=== PATIENT | female | born 1995 | race Caucasian/White ===

== ENCOUNTER → 2016-10-25 | Outpatient (REF) | payer OTHER | LOC: M LAB REF 13:17 | PROVIDERS: ATTEND Physician Assistant Medical | DX: R30.9 Painful micturition, unspecified (principal) ==

== ENCOUNTER → 2016-12-11 | Outpatient (CLI) | payer OTHER ==
[2016-12-11 15:33] LABS: BASO # 0.1 K/mm3 (0.0-0.2); BASO % 0.8 % (0.0-1.0); EOS # 0.5 K/mm3 (0.0-0.50); EOS % 7.4 % (0.0-3.0); LARGE UNSTAINED CELL # 0.2 K/mm3 (0.0-0.4); LARGE UNSTAINED CELL % 2.4 % (0.0-4.0); LYMPH # 2.6 K/mm3 (1.5-6.5); LYMPH % 33.9 % (24.0-44.0); MEAN CORPUSCULAR HEMOGLOBIN 30.9 pg (27.0-33.0); MEAN CORPUSCULAR HGB CONC 33.6 g/dl (32.0-36.5); MEAN CORPUSCULAR VOLUME 92.1 fl (80.0-96.0); MONO # 0.4 K/mm3 (0.0-0.8); MONO % 5.4 % (0.0-5.0); NEUTROPHILS # 3.6 K/mm3 (1.8-7.7); NEUTROPHILS % 50.1 % (36.0-66.0); PLATELET COUNT, AUTOMATED 206 k/mm3 (150-450); RED CELL DISTRIBUTION WIDTH 11.9 % (11.5-14.5); WHITE BLOOD COUNT 7.1 K/mm3 (4.0-10.0)
== END ==
LOC: M LAB 14:48
PROVIDERS: ATTEND Specialist
DX: K51.90 Ulcerative colitis, unspecified, without complications (principal)

== ENCOUNTER → 2016-12-16 | Outpatient (CLI) | payer OTHER ==
--- NOTE | 2016-12-16 17:33 | REP ---
SUPINE ABDOMEN: 12/16/2016. 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 Two supine views were used to encompass the entirety of the abdomen. Gas pattern is nonspecific. There is no obstruction or mass. No sign of constipation. There are no abnormal calcifications. Bones in the lumbar spine, lower thoracic levels, sacrum and iliac wings are intact. No abnormal findings. IMPRESSION: 1. Negative supine abdomen. The gas pattern, bones, and other structure are unremarkable. Signed by Yimi Montes MD 12/17/2016 07:26 A
== END ==
LOC: M RAD 16:35
PROVIDERS: ATTEND Specialist
DX: K51.90 Ulcerative colitis, unspecified, without complications (principal)

== ENCOUNTER → 2016-12-26 | Outpatient (CLI) | payer OTHER | LOC: M LAB 16:54 | DX: K92.1 Melena (principal); K51.90 Ulcerative colitis, unspecified, without complications ==

== ENCOUNTER 2018-06-29 09:33 | Day surgery (SDC) | payer OTHER ==
[2018-06-29] MEDS: NS 1,000 ML IV (07:00)
[~2018-06-29 09:33] MED LIST: LIDOCAINE 2% INJ 100 MG/5 ML SDV (FOR ANES.) As Ordered; PROPOFOL 200 MG/20 ML VIAL As Ordered
== END 2018-06-29 12:08 | disposition home or self-care (01) ==
LOC: M OPP 09:33
DX: K51.90 Ulcerative colitis, unspecified, without complications (principal); K63.89 Other specified diseases of intestine; K64.0 First degree hemorrhoids; F32.9 Major depressive disorder, single episode, unspecified; Z79.899 Other long term (current) drug therapy
CPT/HCPCS: 45380

== ENCOUNTER 2019-03-10 11:34 | Emergency (ER) | payer OTHER, SELFPAY ==
[~2019-03-10] VITALS: Ht 170.2 cm; Wt 79.5 kg
[~2019-03-10 11:34] MED LIST changes: +APRI0.37 PO; +DULO1CAP4 PO; -LIDOCAINE 2% INJ 100 MG/5 ML SDV (FOR ANES.) As Ordered; -PROPOFOL 200 MG/20 ML VIAL As Ordered; +UCER9TAB PO
[2019-03-10 12:50] LABS: URINE PREG TEST NEGATIVE (NEGATIVE)
[2019-03-10 12:52] LABS: BASO # 0.1 10^3/uL (0.0-0.2); BASO % 0.5 % (0.0-1.0); EOS # 0.2 10^3/uL (0.0-0.50); EOS % 1.5 % (0.0-3.0); HEMATOCRIT 41.1 % (36.0-47.0); HEMOGLOBIN 14.2 g/dl (12.0-15.5); LYMPH # 0.7 10^3/uL (1.5-6.5); LYMPH % 5.3 % (24.0-44.0); MEAN CORPUSCULAR HEMOGLOBIN 32.3 pg (27.0-33.0); MEAN CORPUSCULAR HGB CONC 34.5 g/dl (32.0-36.5); MEAN CORPUSCULAR VOLUME 93.4 fl (80.0-96.0); MONO # 0.8 10^3/uL (0.0-0.8); MONO % 6.3 % (0.0-5.0); NEUTROPHILS # 10.7 10^3/uL (1.8-7.7); NEUTROPHILS % 86.2 % (36.0-66.0); PLATELET COUNT, AUTOMATED 180 10^3/uL (150-450); WHITE BLOOD COUNT 12.4 10^3/uL (4.0-10.0)
[2019-03-10 13:30] LABS: ALBUMIN 4.1 GM/DL (3.2-5.2); ALT/SGPT 37 U/L (12-78); BILIRUBIN,DIRECT 0.3 MG/DL (0.0-0.2); BILIRUBIN,TOTAL 1.1 MG/DL (0.2-1.0); BLOOD UREA NITROGEN 6 MG/DL (7-18); CALCIUM LEVEL 8.9 MG/DL (8.5-10.1); CARBON DIOXIDE LEVEL 24 MEQ/L (21-32); CHLORIDE LEVEL 108 MEQ/L (98-107); CREATININE FOR GFR 0.59 MG/DL (0.55-1.30); GLOMERULAR FILTRATION RATE > 60.0 (>60); GLUCOSE, FASTING 99 MG/DL (70-100); LIPASE 54 U/L (73-393); POTASSIUM SERUM 4.1 MEQ/L (3.5-5.1); SODIUM LEVEL 140 MEQ/L (136-145); TOTAL PROTEIN 7.7 GM/DL (6.4-8.2)
[2019-03-10] MEDS ORDERED: KETOROLAC 30 MG/ML VIAL (J1885) IV ONE (16:00)
[2019-03-10] MEDS ORDERED: NS 1,000 ML IV ONE (16:00)
[2019-03-10] MEDS ORDERED: ISOVUE-370 76% 100ML VIAL (Q9967) As Ordered ONE (16:05)
[2019-03-10 16:13] LABS: HEPATITIS B SURFACE ANTIGEN NEGATIVE (NEGATIVE)
[2019-03-10 16:40] LABS: HEPATITIS C VIRUS ABY INDEX 0.1 INDEX (<0.8)
[2019-03-10 16:41] LABS: HEPATITIS B CORE ANTIBODY IGM NEGATIVE (NEGATIVE)
[2019-03-10 16:43] LABS: HEPATITIS A ANTIBODY IGM NEGATIVE (NEGATIVE)
--- NOTE | 2019-03-10 18:13 | REPVR ---
EXAM: CT Abdomen and Pelvis With Contrast EXAM DATE/TIME: 03/10/2019 5:27 PM CLINICAL HISTORY: 23 years old, female; Abdominal pain; Additional info: Upper abd pain, n/v/d, +uc, elevated bili TECHNIQUE: Imaging protocol: Axial computed tomography images of the abdomen and pelvis with intravenous contrast. Coronal and sagittal reformatted images were created and reviewed. Radiation optimization: All CT scans at this facility use at least one of these dose optimization techniques: automated exposure control; mA and/or kV adjustment per patient size (includes targeted exams where dose is matched to clinical indication); or iterative reconstruction. Contrast material: ISOVUE 370; Contrast volume: 100 ml; Contrast route: IV; COMPARISON: No relevant prior studies available. FINDINGS: Liver: There is a diffuse decrease in hepatic parenchymal density, consistent with fatty infiltration. Gallbladder and bile ducts: Normal. No calcified stones. No ductal dilation. Pancreas: Normal. No ductal dilation. Spleen: Normal. No splenomegaly. Adrenals: Normal. No mass. Kidneys and ureters: Normal. No hydronephrosis. Stomach and bowel: The wall of the hepatic flexure of the colon likely related to incomplete distention. Clinical correlation to exclude more aggressive pathology including inflammatory bowel disease or neoplasm suggested. Mild pericolonic inflammatory changes in the sigmoid colon associated with small diverticuli. Although the patient does not report symptoms in the pelvic region the possibility of mild uncomplicated diverticulitis should be considered in the appropriate clinical setting. Boggy appearance of the right hemicolon we should be correlated clinically to exclude colitis. Appendix: No evidence of appendicitis. Intraperitoneal space: Normal. No free air. No significant fluid collection. Vasculature: Normal. No abdominal aortic aneurysm. Lymph nodes: Normal. No enlarged lymph nodes. Bladder: Unremarkable as visualized. Reproductive: Unremarkable as visualized. Bones/joints: Mild central spinal stenosis at L4-5. Posterior disc protrusion at L5-S1 may impinge on the S1 nerve roots as they exit from the thecal sac. Soft tissues: Unremarkable. IMPRESSION: 1. There is a diffuse decrease in hepatic parenchymal density, consistent with fatty infiltration. 2. The wall of the hepatic flexure of the colon likely related to incomplete distention. Clinical correlation to exclude more aggressive pathology including inflammatory bowel disease or neoplasm suggested. 3. Mild pericolonic inflammatory changes in the sigmoid colon associated with small diverticuli. Although the patient does not report symptoms in the pelvic region the possibility of mild uncomplicated diverticulitis should be considered in the appropriate clinical setting. 4. Boggy appearance of the right hemicolon we should be correlated clinically to exclude colitis. Electronically signed by: Kirill Langston On 03/10/2019 18:13:14 PM
[2019-03-10] MEDS ORDERED: PRED20TA PO (18:35)
[2019-03-10] MEDS ORDERED: ONDA4TAB6 PO (18:35)
[2019-03-10] MEDS ORDERED: APRI0.37 PO (18:35)
[2019-03-10 19:04] VITALS: BP 118/76
== END 2019-03-10 19:03 | disposition home or self-care (01) ==
LOC: M ED 11:34
DX: K51.90 Ulcerative colitis, unspecified, without complications (principal); R11.2 Nausea with vomiting, unspecified; F32.9 Major depressive disorder, single episode, unspecified; Z91.120 Patient's intentional underdosing of medication regimen due to financial hardship; Z79.899 Other long term (current) drug therapy
CPT/HCPCS: 36415; 74177; 80048; 80076; 81001; 83690; 84703; 85025; 86705; 86709; 86803; 87086; 87340; 96374; 99284; J1885; Q9967

== ENCOUNTER → 2020-02-29 | Outpatient (REF) | payer OTHER ==
[~2020-02-29] MED LIST changes: +ONDA4TAB6 PO; +PRED20TA PO
[2020-02-29 16:03] LABS: HEMATOCRIT 40.6 % (36.0-47.0); HEMOGLOBIN 13.7 g/dl (12.0-15.5); MEAN CORPUSCULAR HEMOGLOBIN 31.6 pg (27.0-33.0); MEAN CORPUSCULAR HGB CONC 33.7 g/dl (32.0-36.5); MEAN CORPUSCULAR VOLUME 93.8 fl (80.0-96.0); PLATELET COUNT, AUTOMATED 211 10^3/uL (150-450); RED BLOOD COUNT 4.33 10^6/uL (4.00-5.40); WHITE BLOOD COUNT 7.9 10^3/uL (4.0-10.0)
[2020-03-01 09:32] LABS: HEPATITIS C VIRUS ABY INDEX 0.2 INDEX (<0.8); HIV 1&2 SCREEN CENTAUR NEGATIVE (NEGATIVE)
[2020-03-02 13:08] LABS: CHLAMYDIA DNA AMPLIFICATION NEGATIVE (NEGATIVE); GC DNA AMPLIFICATION NEGATIVE (NEGATIVE)
== END ==
LOC: M PLALAB 10:32
PROVIDERS: ATTEND Advanced Practice Midwife
DX: Z34.01 Encounter for supervision of normal first pregnancy, first trimester (principal)

== ENCOUNTER → 2020-04-05 | Outpatient (CLI) | payer OTHER ==
--- NOTE | 2020-05-26 11:46 | REP ---
COMPLETE OBSTETRIC ULTRASOUND CLINICAL: Anatomy. TECHNIQUE: Transabdominal obstetric ultrasound with color Doppler evaluation. FINDINGS: Ultrasound examination demonstrates a single live intrauterine in variable presentation. motion was identified by the technologist. Placenta noted anteriorly and grade 1 without placenta previa or abruption. Amniotic fluid volume is normal. Cervix measures 3.6 cm in length and appears closed. heart rate 156 beats per minute. Gestational age by biometric measurements is 18 weeks 3 days with estimated date of delivery 09/01/2020. Estimated weight 245 grams (61st percentile). Anatomical assessment demonstrates normal cisterna magna, cavum/septum, thalamus, spine, stomach, kidneys/bladder, four chamber heart/ventricular outflow tract, three-vessel cord/cord insertion, facial features, and extremities. Incidental 3 mm left choroid plexus cyst noted. IMPRESSION: * Single intrauterine in variable presentation demonstrated appropriate estimated weight. * A 3 mm left choroid plexus cyst. Anatomical assessment is otherwise complete and normal. MTDD
== END ==
LOC: M WHC 16:24
PROVIDERS: ATTEND Advanced Practice Midwife
DX: Z34.82 Encounter for supervision of other normal pregnancy, second trimester (principal); Z3A.18 18 weeks gestation of pregnancy

== ENCOUNTER → 2020-06-05 | Outpatient (CLI) | payer OTHER ==
[2020-06-05 16:04] LABS: BASO # 0.1 10^3/uL (0.0-0.2); BASO % 0.6 % (0.0-1.0); EOS # 0.5 10^3/uL (0.0-0.5); EOS % 5.4 % (0.0-3.0); HEMATOCRIT 35.2 % (36.0-47.0); HEMOGLOBIN 11.8 g/dl (12.0-15.5); LYMPH # 1.6 10^3/uL (1.5-5.0); LYMPH % 19.2 % (24.0-44.0); MEAN CORPUSCULAR HEMOGLOBIN 31.8 pg (27.0-33.0); MEAN CORPUSCULAR HGB CONC 33.5 g/dl (32.0-36.5); MEAN CORPUSCULAR VOLUME 94.9 fl (80.0-96.0); MONO # 0.7 10^3/uL (0.0-0.8); MONO % 7.8 % (0.0-5.0); NEUTROPHILS # 5.7 10^3/uL (1.5-8.5); NEUTROPHILS % 66.6 % (36.0-66.0); PLATELET COUNT, AUTOMATED 175 10^3/uL (150-450); RED BLOOD COUNT 3.71 10^6/uL (4.00-5.40); WHITE BLOOD COUNT 8.6 10^3/uL (4.0-10.0)
== END ==
LOC: M PLALAB 12:50
PROVIDERS: ATTEND Advanced Practice Midwife
DX: Z34.82 Encounter for supervision of other normal pregnancy, second trimester (principal); Z3A.00 Weeks of gestation of pregnancy not specified

== ENCOUNTER → 2020-08-07 | Outpatient (REF) | payer OTHER | LOC: M SFHCWAGY 10:05 | PROVIDERS: ATTEND Specialist | DX: Z34.03 Encounter for supervision of normal first pregnancy, third trimester (principal) ==

== ENCOUNTER 2020-08-29 08:30 | Inpatient (IN) | payer OTHER ==
[~2020-08-29] VITALS: Ht 170.2 cm; Wt 84.3 kg
[2020-08-29] VITALS (10 sets, daily range): BP systolic 105–176; BP diastolic 58–130
[2020-08-29] MEDS ORDERED: BUSPAR PO (08:51)
[2020-08-29] MEDS ORDERED: LACTATED RINGER'S 1000 ML IV STA (09:11)
[2020-08-29 09:50] LABS: BASO # 0.1 10^3/uL (0.0-0.2); BASO % 0.4 % (0.0-1.0); EOS # 0.5 10^3/uL (0.0-0.5); EOS % 4.5 % (0.0-3.0); HEMATOCRIT 35.8 % (36.0-47.0); HEMOGLOBIN 11.9 g/dl (12.0-15.5); LYMPH # 1.9 10^3/uL (1.5-5.0); LYMPH % 16.6 % (24.0-44.0); MEAN CORPUSCULAR HEMOGLOBIN 30.8 pg (27.0-33.0); MEAN CORPUSCULAR HGB CONC 33.2 g/dl (32.0-36.5); MEAN CORPUSCULAR VOLUME 92.7 fl (80.0-96.0); MONO # 0.9 10^3/uL (0.0-0.8); MONO % 7.9 % (0.0-5.0); NEUTROPHILS # 8.1 10^3/uL (1.5-8.5); NEUTROPHILS % 70.2 % (36.0-66.0); PLATELET COUNT, AUTOMATED 166 10^3/uL (150-450); RED BLOOD COUNT 3.86 10^6/uL (4.00-5.40); WHITE BLOOD COUNT 11.6 10^3/uL (4.0-10.0)
[2020-08-29] MEDS ORDERED: OXYTOCIN 30 UNITS IN 0.9% NaCl 500ML IV BAG (J2590) As Ordered ONE (10:10)
[2020-08-29] MEDS ORDERED: EPIDURAL/PCA KEYS XX PRN (10:11)
[2020-08-29] MEDS ORDERED: FENTANYL 2MCG/ML ROPIVACAINE 0.2% IN 0.9% NACL 100ML IVBAG As Ordered ONE (10:11)
[2020-08-29] MEDS ORDERED: REFRIGERATOR IV KEYS XX PRN (10:11)
[2020-08-29] MEDS ORDERED: ONDANSETRON 4MG/2ML VIAL IV PRN (10:11)
[2020-08-29] MEDS ORDERED: NALOXONE INJ 0.4MG/1ML VIAL (J2310 PER 1MG) IV PRN (10:11)
[2020-08-29] MEDS ORDERED: diphenhydrAMINE 50MG/ML VIAL (J1200) IV PRN (10:11)
[2020-08-29] MEDS ORDERED: EPIDURAL COMMENT XX SCH (10:11)
[2020-08-29] MEDS ORDERED: FENTANYL/ROPIVACAINE/NACL BAG 100 ML EPIDURAL SCH (10:11)
[2020-08-29] MEDS ORDERED: LACTATED RINGER'S 1000 ML IV PRN (10:11)
[2020-08-29] MEDS: LR 1,000 ML IV SCH ×2 (11:13→15:19)
[2020-08-29] MEDS: ePHEDrine SULFATE 25 MG/5 ML(5MG/ML) SYRINGE IV PRN ×2 (11:53→11:56)
[2020-08-29] MEDS ORDERED: OXYTOCIN DRIP 30 UNITS in IV 1 EA IV SCH (13:50)
[2020-08-29 13:53] LABS: CORD GAS ABE A -6.4; CORD GAS HCO3 A 23.5 MEQ/L; CORD GAS HCO3 V 21.9 MEQ/L; CORD GAS O2 SAT A 44.9 %; CORD GAS O2 SAT V 50.9 %; CORD GAS PCO2 A 64.8 mmHg; CORD GAS PCO2 V 51.3 mmHg; CORD GAS PH A 7.178 UNITS; CORD GAS PH V 7.248 UNITS; CORD GAS PO2 A 24.5 mmHg; CORD GAS PO2 V 24.1 mmHg; CORD GAS SBC V 18.5 MEQ/L; CORD GAS TCO2 A 25.5 MEQ/L; CORD GAS TCO2 V 23.5 MEQ/L
[2020-08-29] MEDS ORDERED: ACETAMINOPHEN TAB 650MG DOSE (2X325MG) PO PRN (14:00)
[2020-08-29] MEDS ORDERED: IBUPROFEN 800 MG TAB PO PRN (14:00)
[2020-08-29] MEDS ORDERED: IBUPROFEN 600MG TAB PO PRN (14:00)
[2020-08-29] MEDS ORDERED: DOCUSATE SODIUM 100MG CAPSULE PO PRN (14:00)
[2020-08-29] MEDS ORDERED: ACETAMINOPHEN 500 MG TAB PO PRN (14:00)
[2020-08-29] MEDS ORDERED: METHYLERGONOVINE MALEATE 0.2 MG TAB PO PRN (14:00)
[2020-08-29] MEDS ORDERED: BENZOCAINE 20% HEMORRHOIDAL OINTMENT 28GM TUBE TOP PRN (14:00)
[2020-08-29] MEDS ORDERED: MEASLES,MUMPS,RUBELLA VACCINE INJ (MMR-II) (90707) SC SCH (14:00)
[2020-08-29] MEDS ORDERED: RHOGAM 300 MCG (1500 IU) INJ (J2790) IM SCH (14:00)
--- NOTE | 2020-08-29 14:01 | HPE ---
HISTORY AND PHYSICAL DATE OF ADMISSION: 08/29/2020 HISTORY OF PRESENT ILLNESS: Evie is a 21-year-old female 1 para 0 with an EDC of 09/06/2020 who presented at 39 weeks gestation with complaints of contractions every 3 to 4 minutes with gross rupture of membranes around 6 a.m. Upon evaluation, she was found to be grossly ruptured, meconium stained fluid and in active labor. At this point, a decision was made for admission. She received her care at [facility]. Her labs were reviewed. Blood type is O positive. Rubella immune. Hepatitis negative. HIV negative. GC/chlamydia negative. One hour sugar testing was within normal limits. Her GBS was negative. PAST MEDICAL HISTORY: Significant for ulcerative colitis. PAST SURGICAL HISTORY: Colonoscopy. SOCIAL HISTORY: Denies any alcohol, drugs or cigarette smoking. REVIEW OF SYSTEMS: Unremarkable. FAMILY HISTORY: Significant for hypertension, lupus and ovarian cancer. PHYSICAL EXAMINATION: HEENT: Grossly within normal limits. ABDOMEN: Soft, nontender and nondistended. EXTREMITIES: No clubbing, cyanosis or edema. VAGINAL EXAM: Gross rupture of membranes with thick meconium. Cervix is 5 cm dilated, 100% effaced, fetus at -2 station in a vertex position. Tracing reviewed, Category I tracing with contractions every 3 to 4 minutes. ASSESSMENT: 1. Intrauterine at 39 weeks in active labor. 2. Spontaneous rupture of membranes, thick meconium. 3. GBS negative. PLAN: Admit to Labor and Delivery. Routine labs sent. Pain management discussed. Patient opted for an epidural. Will continue to monitor. Anticipate delivery. cc: [facility]
[2020-08-29] MEDS: MESALAMINE 400 MG CAPSULE DELAYED RELEASE (DELZICOL) PO SCH ×2 (18:08→20:24)
--- NOTE | 2020-08-29 18:16 | DN ---
DELIVERY NOTE DATE OF DELIVERY: 08/29/2020 TIME OF : GENDER: Male APGARS: 8 and 9 LACERATIONS: None DESCRIPTION OF DELIVERY: Gwendolyn is a 24-year-old female 1, para 0, who was admitted at 39 weeks gestation with spontaneous rupture of membranes and thick meconium. She progressed to fully dilated and pushing. Delivered a live male with nuchal cord x1 in the right occiput anterior position. Thick meconium. 8 and 9. weight 7 pounds 13 ounces. The placenta delivered spontaneously intact with three-vessel cord. Perineum, vagina, and cervix inspected. No laceration noted. Estimated blood loss 300 mL. Both mother and baby in stable condition. [facility]
[2020-08-30 06:23] VITALS: BP 111/69
[2020-08-30] MEDS: MESALAMINE 400 MG CAPSULE DELAYED RELEASE (DELZICOL) PO SCH ×2 (08:29→16:11)
[2020-08-30] MEDS ORDERED: PRENATAL VITAMINS CHEWABLE TABLET PO SCH (09:00)
[2020-08-30 17:48] VITALS: BP 137/75
== END 2020-08-30 18:45 | disposition home or self-care (01) | DRG 560 ==
LOC: M LDO 08:30 → M LDI 09:14 → M OBS 16:30
PROVIDERS: ADMIT Obstetrics & Gynecology; ATTEND Obstetrics & Gynecology
PROC: 10E0XZZ Delivery of Products of Conception, External Approach (ICD-10-PCS; principal; 2020-08-29)
DX: O77.0 Labor and delivery complicated by meconium in amniotic fluid (principal); O69.81X0 Labor and delivery complicated by cord around neck, without compression, not applicable or unspecified; Z3A.39 39 weeks gestation of pregnancy; Z37.0 Single live birth

== ENCOUNTER → 2020-12-19 | Outpatient (REF) | payer OTHER ==
[~2020-12-19] MED LIST changes: +BUSPAR PO
== END ==
LOC: M LAB REF 13:31
PROVIDERS: ATTEND Internal Medicine Gastroenterology
DX: K51.90 Ulcerative colitis, unspecified, without complications (principal); R19.7 Diarrhea, unspecified

== ENCOUNTER → 2021-06-17 | Outpatient (REF) | payer OTHER ==
[2021-06-17 19:54] LABS: RSV AMPLIFICATION NEGATIVE (NEGATIVE)
== END ==
LOC: M LAB REF 18:36
PROVIDERS: ATTEND Physician Assistant
DX: R05.9 Cough, unspecified (principal)

== ENCOUNTER 2021-08-16 09:14 | Emergency (ER) | payer OTHER ==
[~2021-08-16] VITALS: Ht 172.7 cm; Wt 90.9 kg
[2021-08-16 09:15] VITALS: BP 136/79
[2021-08-16] MEDS ORDERED: GABA-1171 PO (09:31)
[2021-08-16] MEDS ORDERED: MACR100C43 PO (09:31)
[2021-08-16] MEDS ORDERED: diazePAM 5MG TABLET PO ONE (11:40)
[2021-08-16] MEDS ORDERED: KETOROLAC 60MG 2ML VIAL IM ONE (11:40)
[2021-08-16] MEDS ORDERED: LIDOCAINE 5% (LIDODERM) PATCH TD ONE (11:40)
[2021-08-16] MEDS ORDERED: METH-1164 PO (13:05)
[2021-08-16] MEDS ORDERED: LIDO5DIS41 TD (13:05)
[2021-08-16] MEDS ORDERED: NAPR-885 PO (13:05)
[2021-08-16] MEDS ORDERED: **NOTE PATIENT COMMENT** MISC XX SCH (21:00)
== END 2021-08-16 13:21 | disposition home or self-care (01) ==
LOC: M ED 09:14
DX: M54.50 Low back pain, unspecified (principal); Z88.8 Allergy status to other drugs, medicaments and biological substances; Z79.899 Other long term (current) drug therapy
CPT/HCPCS: 72100; 73521; 96372; 99283; J1885

== ENCOUNTER → 2022-09-13 | Outpatient (CLI) | payer OTHER ==
[~2022-09-13] MED LIST changes: +GABA-1171 PO; +LIDO5DIS41 TD; +MACR100C43 PO; +METH-1164 PO; +NAPR-885 PO
[2022-09-13 18:04] LABS: BASO # 0.1 10^3/uL (0.0-0.2); BASO % 1.1 % (0.0-1.0); EOS % 10.8 % (0.0-3.0); HEMATOCRIT 40.9 % (36.0-47.0); HEMOGLOBIN 13.7 g/dl (12.0-15.5); LYMPH # 3.1 10^3/uL (1.5-5.0); LYMPH % 32.7 % (24.0-44.0); MEAN CORPUSCULAR HGB CONC 33.5 g/dl (32.0-36.5); MEAN CORPUSCULAR VOLUME 92.5 fl (80.0-96.0); MONO # 0.7 10^3/uL (0.0-0.8); MONO % 6.9 % (2.0-8.0); NEUTROPHILS # 4.5 10^3/uL (1.5-8.5); NEUTROPHILS % 48.3 % (36.0-66.0); PLATELET COUNT, AUTOMATED 234 10^3/uL (150-450); RED BLOOD COUNT 4.42 10^6/uL (4.00-5.40); WHITE BLOOD COUNT 9.4 10^3/uL (4.0-10.0)
[2022-09-13 18:19] LABS: HCG, SERUM QUALITATIVE NEGATIVE (NEGATIVE)
[2022-09-13 18:21] LABS: FREE T4 1.13 NG/DL (0.89-1.76)
[2022-09-13 18:22] LABS: THYROID STIMULATING HORMONE 1.239 uIU/ML (0.55-4.78)
== END ==
LOC: M PLALAB 15:26
PROVIDERS: ATTEND Nurse Practitioner Family
DX: N92.6 Irregular menstruation, unspecified (principal)

== ENCOUNTER → 2023-01-08 | Outpatient (REF) | payer OTHER | LOC: M SFHCWAGY 17:50 | PROVIDERS: ATTEND Nurse Practitioner Family | DX: Z12.4 Encounter for screening for malignant neoplasm of cervix (principal) ==

== ENCOUNTER 2023-11-13 09:29 | Day surgery (SDC) | payer OTHER ==
[~2023-11-13] VITALS: Ht 170.2 cm; Wt 88.1 kg
[~2023-11-13 09:29] MED LIST changes: +DELZ400C5 PO; +DICY1CAP8 PO; +LOPE1CAP5 PO
[2023-11-13] MEDS: NS 1,000 ML IV ONE (09:51)
[2023-11-13] MEDS ORDERED: LIDOCAINE 2% 100MG/5ML SDV (FOR ANES.) As Ordered ONE (09:55)
[2023-11-13] MEDS ORDERED: propofoL 200 MG/20 ML VIAL As Ordered ONE (09:55)
[2023-11-13 10:55] VITALS: TEMP 96.9
[2023-11-13 11:15] VITALS: BP 131/78; O2SAT 100
== END 2023-11-13 11:35 | disposition home or self-care (01) ==
LOC: M OPP 09:29
PROVIDERS: ATTEND Internal Medicine Gastroenterology
DX: K51.90 Ulcerative colitis, unspecified, without complications (principal); K64.0 First degree hemorrhoids; Z79.891 Long term (current) use of opiate analgesic; Z79.899 Other long term (current) drug therapy; Z88.8 Allergy status to other drugs, medicaments and biological substances

== ENCOUNTER → 2024-01-26 | Outpatient (REF) | payer OTHER | LOC: M LAB REF 17:19 | PROVIDERS: ATTEND Surgery | DX: D48.5 Neoplasm of uncertain behavior of skin (principal) ==